=== PATIENT | female | born 1965 | race Caucasian/White ===

== ENCOUNTER 2021-06-22 12:10 | Day surgery (SDC) | payer BC ==
[2021-06-18 13:36] VITALS: BMI 26.5
[~2021-06-22 12:10] MED LIST: LACTATED RINGERS 1,000 ML IV SCH
[2021-06-22] MEDS ORDERED: LIDOCAINE 1% (10MG/ML) FOR IV START INTRADERMA ONE (12:40)
[2021-06-22] MEDS ORDERED: MIDAZOLAM 2 MG/2 ML VIAL ONE (12:44)
[2021-06-22] MEDS ORDERED: methylPREDNISolone ACETATE 40 MG/ML 1 ML VIAL ONE (12:44)
[2021-06-22] MEDS ORDERED: fentaNYL (PF) 50 MCG/ML 2 ML AMP ONE (12:44)
[2021-06-22] MEDS ORDERED: IOPAMIDOL M200 10 ML VIAL ONE (12:44)
[2021-06-22 12:47] VITALS: RESP 16; TEMP 98.9
--- NOTE | 2021-06-22 13:06 | P.PCN ---
Date of Procedure: 06/22/21 Procedure(s) Performed: PREOPERATIVE DIAGNOSIS: 1- Lumbar spine stenosis 2-Lumbar spondylosis with Facet arthropathy without myelopathy POSTOPERATIVE DIAGNOSIS: Same as preop diagnosis. PROCEDURE 1. Lumbar epidural steroid injection under fluoroscopic guidance at the L4-5 l evel. (Fluoroscopy imaging was available in radiology department) 2. Lumbar epidurogram. ANESTHESIA: Local with 1% lidocaine 3 ml and , moderate sedation with intravenous Versed 2 mg ,and fentanyle 100 Mcg EBL: Minimal PROCEDURE INDICATION: The patient with low back pain and radiculitis symptoms unresponsive to conservative treatment. Fluoroscopy was used to optimize visualization of the needle placement and to maximize safety. PROCEDURE DESCRIPTION / TECHNIQUE: The patient was seen and identified in the preoperative area. Risks, benefits, complications including but not limited to infections ,bleeding ,allergic reaction to the medications ,nerve damage and not complete pain releife , and alternatives were discussed with the patient. The patient agreed to proceed with the procedure and signed the consent. IV was started, and vital signs were stable. Patient was taken to the OR and time out was completed. The patient was placed in the prone position on procedure table and a pillow was placed under the abdomen to reduce lumbar lordosis. The lumbosacral area was prepped and draped in the usual sterile fashion.ere closely monitored during the procedure. Conscious sedation was used during the procedure to decrease patients anxiety. Vital signs was monitered during the entire procedure. Using anterior-posterior fluoroscopy, the L4-5 interlaminar space was identified and the skin over this site was marked and then infiltrated with 1% lidocaine subcutaneously. Subsequently, a 20-gauge Tuohy epidural needle was inserted and advanced toward the epidural space using the ``Loss of resistance technique and guided by AP and lateral fluoroscopy. The correct needle position in the epidural space was verified with the injection of 2 mL of the water soluble contrast dye Isovue 200 contrast and observing an excellent epidurogram with the epidural spread of the dye, after negative aspiration for blood and CSF and in the absence of paresthesias. Again after negative aspiration, a 6 ml mixture containing 80 mg of Depo-medrol , and 2 ml of preservative free Normal Saline, and 2 ml of preservative free lidocaine 1% solution was injected and a washout of epidurogram was seen. Needle was withdrawn intact, skin was cleansed, and bandages were applied. COMPLICATIONS: None DISPOSITION / PLANS: The patient was placed in a supine position and transferred to the recovery area in a stable condition for observation. There was no evidence of lower extremity motor or sensory deficit after the procedure. Patient was discharged from the recovery room after meeting discharge criteria. Home discharge instructions were given to the patient by the staff. The patient was reexamined prior to discharge. The patient will schedule a follow up in the clinic in 2-4 weeks.
[2021-06-22] MEDS ORDERED: IV FLUID CONTINUATION 800 ML IV ONE (13:08)
[2021-06-22] MEDS ORDERED: LACTATED RINGERS 1,000 ML IV ONE (13:08)
--- NOTE | 2021-06-22 13:13 | FL ---
EXAMINATION TYPE: FL guided pain mgmt statistic DATE OF EXAM: 06/22/2021 HISTORY: Fluoroscopy time 2 seconds of fluoroscopy provided. IMPRESSION: 1. Fluoroscopy time.
[2021-06-22 13:37] VITALS: BP 116/63; PULSE 71
== END 2021-06-22 13:34 | disposition home or self-care (01) ==
LOC: ORPAIN 12:10
PROVIDERS: ATTEND Specialist
DX: M48.061 Spinal stenosis, lumbar region without neurogenic claudication (principal); M47.26 Other spondylosis with radiculopathy, lumbar region
CPT/HCPCS: 81025; 62323; J2250; J1030; J3010; Q9966

== ENCOUNTER → 2021-08-27 | Outpatient (CLI) | payer BC ==
[2021-08-27 10:37] VITALS: BP 110/67; PULSE 115; RESP 18; TEMP 98.3
--- NOTE | 2021-08-27 11:07 | P.GSHP ---
History of Present Illness H&P Date: 08/27/21 Chief Complaint: right breast lump Shawnee is a 56 year old white female seen in consultation for Dr. Joya concerning a lump in her right breast. The lump has been present for a month. She states it is < 1 cm. It is deep in the tissue. She was laying on her side in bed and noted this. She had a bilateral mammogram in [id number]. This was benign BIRADS 1. It is located in the upper outer quadrant. It has not changed in size. It is not painful. She had a uterine ablation and is not having any periods. She has not had any trauma or infection in the breast. Caffeine: 2 cups/day nicotine: none chocolate: occasional BCP: 5 years stopped in her 30's hormones: none Family history: maternal grandmother: lung cancer paternal grandmother: ? type paternal uncle: liver cancer drinker Hormonal History: menarche: 14 , breast fed: no, age at first : 26 menopause: ablation at 46, periods stopped hormones: none Surgical history: Uterine ablation Medical history: bursitis of both hips depression Social History: nicotine: none alcohol: none drugs: none - Constitutional Constitutional: Denies chills, Denies fever - EENT Eyes: denies blurred vision, denies pain Ears: deny: decreased hearing, tinnitus Ears, nose, mouth and throat: Denies headache, Denies sore throat - Breasts Breasts: bilateral: as per HPI - Cardiovascular Cardiovascular: Denies chest pain, Denies shortness of breath - Respiratory Respiratory: Denies cough, Denies 7 - Gastrointestinal Gastrointestinal: Denies abdominal pain, Denies diarrhea, Denies nausea, Denies vomiting - Genitourinary (Female) Genitourinary: Denies dysuria, Denies hematuria - Menstruation Menstruation: Reports postmenopausal - Musculoskeletal Musculoskeletal: Reports as per HPI - Integumentary Integumentary: Denies pruritus, Denies rash - Neurological Neurological: Denies numbness, Denies weakness - Psychiatric Psychiatric: Denies anxiety, Denies depression - Endocrine Endocrine: Denies fatigue, Denies weight change - Hematologic/Lymphatic Comment: none - Allergic/Immunologic Allergic/Immunologic: Reports seasonal allergies Past Medical History Additional Past Medical History / Comment(s): CHRONIC BACK PAIN History of Any Multi-Drug Resistant Organisms: None Reported Past Surgical History: Tubal Ligation, Uterine Ablation Past Anesthesia/Blood Transfusion Reactions: No Reported Reaction Past Psychological History: Depression Smoking Status: Never smoker Past Alcohol Use History: None Reported Past Drug Use History: None Reported Medications and Allergies Home Medications Medication Instructions Recorded Confirmed Type B12/Levomefolate Calcium/B-6 288 mg PO DAILY 06/22/21 08/27/21 History [Foltx Tablet] Biotin 10,000 mcg PO DAILY 06/22/21 08/27/21 History Mv-Min/Folic/Vit K/Lut/Kzcg991 1 tab PO DAILY 06/22/21 08/27/21 History [Alive Women's 50 Plus Tablet] DULoxetine HCL 40 mg PO DAILY 08/27/21 08/27/21 History Rachel-3 Fatty Acids [Rachel-3] 1,000 mg PO DAILY 08/27/21 08/27/21 History Allergies Allergy/AdvReac Type Severity Reaction Status Date / Time No Known Allergies Allergy Verified 08/27/21 10:32 Surgical - Exam Vital Signs Temp Pulse Resp BP Pulse Ox 98.3 F 115 H 18 110/67 94 L 08/27/21 10:34 08/27/21 10:34 08/27/21 10:34 08/27/21 10:34 08/27/21 10:34 BMI 27.2 - General no distress - Eyes normal ocular movement - Neck trachea midline - Respiratory normal expansion - Cardiovascular Rhythm: regular Heart Sounds: normal: S1, S2 - Integumentary normal turgor - Neurologic no disoriented, no combative - Musculoskeletal normal gait, normal posture - Psychiatric oriented to time, oriented to person, oriented to place, speech is normal, memory intact Breast Exam: BRA: 34B inspection: Bilateral grade 2/3 ptosis Palpation: Right breast: multi-positional exam fibrocystic changes in the upper outer quadrant region near the axillary skin fold there is approximately an 8 mm area of nodularity which is more firm and freely mobile Right axilla: No adenopathy of concern Left breast: Multi-positional exam fibrocystic changes no dominant masses or nodules of concern Left axilla: No adenopathy of concern Results Mammogram reviewed from [id number] Assessment and Plan Assessment: Impression: Fibrocystic breast changes bilateral mammogram [id number] Finding of palpable mass right breast upper outer quadrant Plan: Ultrasound area of concern right breast if this is identified ultrasound core biopsy If ultrasound is unable to detect the lesion would recommend removal in the operating room follow up after ultrasound CC: Dr. Joya
== END ==
LOC: WWCWWP 10:23
PROVIDERS: ATTEND Surgery
DX: N60.11 Diffuse cystic mastopathy of right breast (principal); N60.12 Diffuse cystic mastopathy of left breast; N63.11 Unspecified lump in the right breast, upper outer quadrant; F32.A Depression, unspecified

== ENCOUNTER → 2021-09-09 | Day surgery (SDC) | payer BC ==
--- NOTE | 2021-09-09 14:44 | USB ---
EXAMINATION TYPE: US biopsy breast VAD RT, MG diagnostic mammo RT wo CAD DATE OF EXAM: 09/09/2021 CLINICAL HISTORY: N63 BREAST LUMP/MASS. Abnormal ultrasound. TECHNIQUE: Ultrasound guided core biopsy of right breast with clip placement follow-up diagnostic two-view mammogram.. COMPARISON: Prior right breast ultrasound August 27, 2021 and older studies. FINDINGS: The procedure of ultrasound guided core biopsy was explained to the patient. Benefits, alternatives, and risks were discussed. An informed consent was then obtained. The patient was placed in supine positioning for imaging and for the procedure. Preprocedure ultrasound redemonstrates a hypoechoic roughly 1.2 cm lesion with indistinct margins at 10:00 position right breast. The overlying skin was prepped and draped in usual sterile fashion. Lidocaine is used as anesthetic into the skin and subcutaneous tissue up to area of concern in the right breast. A zander was made with surgical scalpel. Under ultrasound guidance, a 12-gauge vacuum assisted biopsy gun device was used to obtain 2 core samples. Following this, a biopsy clip was left in lesion. The patient tolerated the procedure well without any immediate complication. The patient was kept in the radiology department for short stay after the procedure and then discharged home in stable condition. Postprocedure mammogram confirms successful deployment of the clip posterior upper outer quadrant IMPRESSION: Successful, uncomplicated ultrasound guided core biopsy of area of concern in the right breast, full pathology results to follow. Intermediate index of suspicion noted at time of procedure. Pathology Results: Malignant RIGHT BREAST, 10:00, NEEDLE CORE BIOPSY: Invasive poorly differentiated ductal carcinoma (Grade 3). See Surgical Pathology Cancer Case Summary. Recommendation Surgical consult of the right breast. JENNIFER
== END ==
LOC: RADUSWWP 12:30
PROVIDERS: ATTEND Surgery
DX: C50.411 Malignant neoplasm of upper-outer quadrant of right female breast (principal); Z17.1 Estrogen receptor negative status [ER-]
CPT/HCPCS: 19083; 88305; 88342; 88341; 77065; A4648

== ENCOUNTER → 2021-09-16 | Outpatient (CLI) | payer BC ==
[2021-09-16 09:33] VITALS: BP 143/80; PULSE 78; RESP 18; TEMP 98.1
--- NOTE | 2021-09-16 09:55 | P.PN ---
Subjective Progress Note Date: 09/16/21 Shawnee is a 56 year old white female seen in consultation for Dr. Joya concerning a lump in her right breast. The lump has been present for a month. She states it is < 1 cm. It is deep in the tissue. She was laying on her side in bed and noted this. She had a bilateral mammogram in [id number]. This was benign BIRADS 1. It is located in the upper outer quadrant. It has not changed in size. It is not painful. She had a uterine ablation and is not having any periods. She has not had any trauma or infection in the breast. The patient underwent an ultrasound core biopsy on 09-09-21. This revealed a G3 Er-Pr- invasive ductal cancer. The Her 2 is pending. The lesion is T1NoMo. at this time. She tolerated the procedure without difficulty. Caffeine: 2 cups/day nicotine: none chocolate: occasional BCP: 5 years stopped in her 30's hormones: none Family history: maternal grandmother: lung cancer paternal grandmother: ? type paternal uncle: liver cancer drinker Hormonal History: menarche: 14 , breast fed: no, age at first : 26 menopause: ablation at 46, periods stopped hormones: none Surgical history: Uterine ablation Medical history: bursitis of both hips depression Social History: nicotine: none alcohol: none drugs: none - Constitutional Constitutional: Denies chills, Denies fever - EENT Eyes: denies blurred vision, denies pain Ears: deny: decreased hearing, tinnitus Ears, nose, mouth and throat: Denies headache, Denies sore throat - Breasts Breasts: bilateral: as per HPI - Cardiovascular Cardiovascular: Denies chest pain, Denies shortness of breath - Respiratory Respiratory: Denies cough - Gastrointestinal Gastrointestinal: Denies abdominal pain, Denies diarrhea, Denies nausea, Denies vomiting - Genitourinary (Female) Genitourinary: Denies dysuria, Denies hematuria - Menstruation Menstruation: Reports postmenopausal - Musculoskeletal Musculoskeletal: Reports as per HPI - Integumentary Integumentary: Denies pruritus, Denies rash - Neurological Neurological: Denies numbness, Denies weakness - Psychiatric Psychiatric: Denies anxiety, Denies depression - Endocrine Endocrine: Denies fatigue, Denies weight change - Hematologic/Lymphatic Comment: none - Allergic/Immunologic Allergic/Immunologic: Reports seasonal allergies Objective - Vital Signs Vital signs: Vital Signs Temp 98.1 F 09/16/21 09:29 Pulse 78 09/16/21 09:29 Resp 18 09/16/21 09:29 BP 143/80 09/16/21 09:29 Pulse Ox 98 09/16/21 09:29 Intake & Output 09/15/21 09/16/21 09/16/21 18:59 06:59 18:59 Weight 65.771 kg - Constitutional General appearance: Present: cooperative - EENT Eyes: Present: EOMI ENT: Present: hearing grossly normal - Neck Neck: Present: normal ROM - Respiratory Respiratory: bilateral: CTA - Cardiovascular Heart sounds: normal: S1, S2 - Integumentary Integumentary Comment(s): Biopsy site clean and dry No evidence of infection No evidence of hematoma Mild ecchymosis at the site - Musculoskeletal Musculoskeletal: Present: gait normal - Psychiatric Psychiatric: Present: A&O x's 3, appropriate affect, intact judgment & insight Assessment and Plan Assessment: Impression: Ultrasound core biopsy right breast T1 N0 M0 G3 ER AK negative HER-2 pending Plan: Present case at tumor board Discussion of treatment options with the patient in detail Cc: Dr. Joya
== END ==
LOC: WWCWWP 09:01
PROVIDERS: ATTEND Surgery
DX: C50.911 Malignant neoplasm of unspecified site of right female breast (principal); Z17.1 Estrogen receptor negative status [ER-]; F32.A Depression, unspecified

== ENCOUNTER → 2021-09-22 | Outpatient (CLI) | payer BC ==
--- NOTE | 2021-09-27 08:27 | BMR ---
EXAMINATION TYPE: MR breast BILAT wo/w con DATE OF EXAM: 09/22/2021 COMPARISON: Outside 3-D screening mammogram April 29, 2021 BI-RADS 1. Limited right breast ultras ound August 27, 2021 BI-RADS 4. HISTORY: Breast cancer right upper outer quadrant on ultrasound-guided biopsy September 09, 2021 poorly d ifferentiated ductal carcinoma. TECHNIQUE: A series of fat and water weighted images in the long and short axis views of both breasts are obtained in conjunction with dynamic contrast MRI with subtraction technique. The patient was i njected with 6.5 mL intravenous Gadavist gadolinium contrast. Three-dimensional and additional post processing imaging is created on independent workstation and reviewed during official interpretation of this study. FINDINGS: Breast parenchyma redemonstrated heterogeneously dense. T2 and STIR weighted images show no significant cystic change or focal fluid collections in either breast. There are benign-appearing bi lateral axillary lymph nodes. No suspicious axillary adenopathy is present. Dynamic postcontrast imag ing shows mild background type enhancement. Delayed dynamic imaging shows no suspicious internal mamm steph adenopathy. With regards to the left breast. There is no abnormal skin thickening seen. There is no suspicious en hancement or enhancing masses identified. The chest wall is intact. With regards of the right breast there is artifact from biopsy clip in the posterior depth upper oute r quadrant image 152 series 401 for reference. This is at the inferior slightly lateral aspect of a r ound enhancing T2 hyperintense lesion measuring 1.1 cm AP diameter by 1.2 cm transversely by 1.1 cm c raniocaudal dimension image 945 series 701. Findings correlate with ultrasound findings. The computer measures area up to 1.7 cm transversely as longest axis Remainder of right breast shows no additiona l suspicious enhancement or enhancing masses. No abnormal skin thickening is seen. The chest wall ascencion ears intact. IMPRESSION: Biopsy proven malignancy in the right breast identified on MRI. No multicentric malignanc y seen. No invasive malignancy in the left breast noted. BI-RADS 6 biopsy-proven malignancy right breast. BI-RADS 1 negative study left breast. Recommendation: Appropriate surgical and oncologic management of newly diagnosed right breast maligna ncy.
== END | disposition home or self-care (01) ==
LOC: RADMRIMAIN 19:12
PROVIDERS: ATTEND Surgery
DX: C50.411 Malignant neoplasm of upper-outer quadrant of right female breast (principal)
CPT/HCPCS: 77049; C8937; A9585

== ENCOUNTER → 2021-10-14 | Outpatient (CLI) | payer BC ==
--- NOTE | 2021-10-14 11:54 | CA ---
Transthoracic Echo Report Name: Shawnee Capellan Age: 56 Gender: F : 1965 Exam Date: 10/14/2021 10:38 Exam Location: [facility] Ht (in): 62 Wt (lb): 140 Ordering Physician: Danae Ochoa MD Attending/Referring Phys: Fourchette Sewer Fozia Barriga RDCS Procedure CPT: Indications: Z01.818 ENCOUNTER FOR OTHER PREPROCEDURAL EXAMINAT Cardiac Hx: Pre Chemo. Technical Quality: Good Contrast 1: Total Dose (mL): Contrast 2: N/A Total Dose (mL): MEASUREMENTS (Male / Female) Normal Values 2D ECHO LV Diastolic Diameter PLAX 3.6 cm 4.2 - 5.9 / 3.9 - 5.3 cm LV Systolic Diameter PLAX 2.4 cm IVS Diastolic Thickness 0.7 cm 0.6 - 1.0 / 0.6 - 0.9 cm LVPW Diastolic Thickness 1.1 cm 0.6 - 1.0 / 0.6 - 0.9 cm LV Relative Wall Thickness 0.5 RV Internal Dim ED PLAX 2.1 cm LA Volume 28.9 cm??? 18 - 58 / 22 - 52 cm??? M-MODE Aortic Root Diameter MM 2.8 cm LA Systolic Diameter MM 2.0 cm LA Ao Ratio MM 0.7 MV E Point Septal Separation 0.8 cm AV Cusp Separation MM 1.5 cm DOPPLER MV Area PHT 5.1 cm??? Mitral E Point Velocity 63.2 cm/s Mitral A Point Velocity 64.8 cm/s Mitral E to A Ratio 1.0 MV Deceleration Time 147.5 ms MV E' Velocity 10.0 cm/s Mitral E to MV E' Ratio 6.3 FINDINGS Left Ventricle Normal left ventricular systolic function with no obvious regional wall motion abnormalities. Mildly increased left ventricular wall thickness. Right Ventricle Normal right ventricular size and function. Right ventricular systolic pressure within normal limits. Right Atrium Normal right atrial size. Left Atrium Normal left atrial size. Mitral Valve Mild mitral regurgitation. Aortic Valve Trileaflet aortic valve. Tricuspid Valve Mild tricuspid regurgitation. Pulmonic Valve Structurally normal pulmonic valve. Pericardium Normal pericardium. Aorta Normal size aortic root and proximal ascending aorta. CONCLUSIONS Normal left ventricular ejection fraction 55-60% Borderline LVH Mild mitral regurgitation Mild tricuspid regurgitation Previewed by: Dr. Abdulaziz Law DO (Electronically Signed) Final Date: 14 October 2021 11:53
== END | disposition home or self-care (01) ==
LOC: RADECHMAIN 10:29
PROVIDERS: ATTEND Internal Medicine Hematology & Oncology
DX: Z01.818 Encounter for other preprocedural examination (principal); I08.1 Rheumatic disorders of both mitral and tricuspid valves
CPT/HCPCS: 93306

== ENCOUNTER → 2021-11-05 | Outpatient (CLI) | payer BC ==
[2021-11-05 11:32] VITALS: BP 127/79; PULSE 73; RESP 16; TEMP 98.2
--- NOTE | 2021-11-05 12:13 | P.PN ---
Subjective Progress Note Date: 11/05/21 Principal diagnosis: invasive ductal right breast cancer Shawnee is a 56 year old white female seen in consultation for Dr. Joya concerning a lump in her right breast. The lump has been present for a month. She states it is < 1 cm. It is deep in the tissue. She was laying on her side in bed and noted this. She had a bilateral mammogram in [id number]. This was benign BIRADS 1. It is located in the upper outer quadrant. It has not changed in size. It is not painful. She had a uterine ablation and is not having any periods. She has not had any trauma or infection in the breast. The patient underwent an ultrasound core biopsy on 09-09-21. This revealed a G3 Er-Pr- invasive ductal cancer. The Her 2 is pending. The lesion is T1NoMo. at this time. She tolerated the procedure without difficulty. 11-05-21 The patient's case has been presented at tumor board as well as she has seen medical oncology. She also met with radiation oncology. 10-12-21: note from DR. Ochoa reviewed ; patient did not want to have edgar- adjuvant chemotherapy will proceed with surgery [id number] Caffeine: 2 cups/day nicotine: none chocolate: occasional BCP: 5 years stopped in her 30's hormones: none Family history: maternal grandmother: lung cancer paternal grandmother: ? type paternal uncle: liver cancer drinker Hormonal History: menarche: 14 , breast fed: no, age at first : 26 menopause: ablation at 46, periods stopped hormones: none Surgical history: Uterine ablation Medical history: bursitis of both hips depression Social History: nicotine: none alcohol: none drugs: none - Constitutional Constitutional: Denies chills, Denies fever - EENT Eyes: denies blurred vision, denies pain Ears: deny: decreased hearing, tinnitus Ears, nose, mouth and throat: Denies headache, Denies sore throat - Breasts Breasts: bilateral: as per HPI - Cardiovascular Cardiovascular: Denies chest pain, Denies shortness of breath - Respiratory Respiratory: Denies cough - Gastrointestinal Gastrointestinal: Denies abdominal pain, Denies diarrhea, Denies nausea, Denies vomiting - Genitourinary (Female) Genitourinary: Denies dysuria, Denies hematuria - Menstruation Menstruation: Reports postmenopausal - Musculoskeletal Musculoskeletal: Reports as per HPI - Integumentary Integumentary: Denies pruritus, Denies rash - Neurological Neurological: Denies numbness, Denies weakness - Psychiatric Psychiatric: Denies anxiety, Denies depression - Endocrine Endocrine: Denies fatigue, Denies weight change - Hematologic/Lymphatic Comment: none - Allergic/Immunologic Allergic/Immunologic: Reports seasonal allergies Objective - Vital Signs Vital signs: Vital Signs Temp 98.2 F 11/05/21 11:29 Pulse 73 11/05/21 11:29 Resp 16 11/05/21 11:29 BP 127/79 11/05/21 11:29 Pulse Ox 96 11/05/21 11:29 FiO2 Intake & Output 11/04/21 11/05/21 11/05/21 18:59 06:59 18:59 Weight 63.503 kg - Exam BMI: 25.6 - Constitutional General appearance: Present: cooperative - EENT Eyes: Present: EOMI ENT: Present: hearing grossly normal - Neck Neck: Present: normal ROM - Respiratory Respiratory: bilateral: CTA - Cardiovascular Rhythm: regular Heart sounds: normal: S1, S2 - Gastrointestinal General gastrointestinal: Present: soft - Integumentary Integumentary: Present: normal turgor - Musculoskeletal Musculoskeletal: Present: gait normal - Psychiatric Psychiatric: Present: A&O x's 3, appropriate affect, intact judgment & insight - Additional findings Additional findings: Breast Exam: BRA: 34B Inspection: Grade 3 ptosis bilateral Palpation: Right breast: Multiple positional exam fullness upper-outer quadrant no other discrete dominant masses or nodules of concern Right axilla: No adenopathy of concern Left breast: Multiple positional exam fibrocystic changes no dominant masses or nodules of concern Left axilla: No adenopathy of concern Assessment and Plan Assessment: Impression: Stage IB right breast invasive ductal carcinoma Plan: right breast needle localization lumpectomy, onco-plastic tissue transfer, mastopexy incision, sentinel node biopsy, sentinel node injection, possible right axillary node dissection Risks and benefits of the procedure discussed with the patient and her . They understand and wish to proceed. This is being scheduled for the near future. CC: Dr. Joya
== END ==
LOC: WWCWWP 11:20
PROVIDERS: ATTEND Surgery
DX: C50.411 Malignant neoplasm of upper-outer quadrant of right female breast (principal); F32.A Depression, unspecified

== ENCOUNTER 2021-11-09 08:10 | Day surgery (SDC) | payer BC ==
[2021-11-05 10:54] VITALS: BMI 25.6
[~2021-11-09 08:10] MED LIST changes: +DEXAMETHASONE SOD PHOSPHATE 4 MG/ML 1 ML VIAL IV ONE; +HEPARIN SODIUM,PORCINE/PF 5,000 UNIT/0.5 ML SYRINGE SQ PRN; +HYDROmorphone 0.5 MG/0.5 ML SYRINGE IVP PRN; +LIDOCAINE 1% (10MG/ML) FOR IV START INTRADERMA PRN; +MIDAZOLAM 2 MG/2 ML VIAL IV PRN; +ONDANSETRON 4 MG/2 ML VIAL IVP ONE; +Pre Op ABX Message 1 EACH MISC MISCELLANE ONE
[2021-11-09] MEDS ORDERED: ALPRAZolam 0.5 MG TAB PO ONE (09:27)
[2021-11-09] MEDS ORDERED: LIDOCAINE 1% INJ 10MG/ML (20 ML MDV) SQ ONE (10:11)
--- NOTE | 2021-11-09 11:41 | P.NAPBC ---
NAPBC Queries - NAPBC Queries Was patient's case review presented at [facility] tumor board? If no, comment.: Yes Was patient's pathology reviewed at [facility]? If no, comment.: Yes Was breast conservation surgery offered? If no, comment.: Yes Was sentinel node biopsy offered? If no, comment.: Yes Was diagnosis confirmed by percutaneous core biopsy? If no, comment.: Yes Is patient mastectomy patient?: No Was a preop referral to reconstructive surgeon offered?: No Clinical Stage: sstage IB [id number]
[2021-11-09] MEDS ORDERED: MIDAZOLAM 2 MG/2 ML VIAL ONE (11:46)
[2021-11-09] MEDS ORDERED: fentaNYL (PF) 50 MCG/ML 2 ML AMP ONE (11:46)
[2021-11-09] MEDS ORDERED: PHENYLEPHRINE-0.9% NACL SYG 1,000 MCG/10 ML SYRINGE ONE (11:46)
[2021-11-09] MEDS ORDERED: PROPOFOL 10 MG/ML 20 ML VIAL IV ONE (11:46)
[2021-11-09] MEDS ORDERED: SUCCINYLCHOLINE CHLORIDE 100 MG/5 ML SYR IV ONE (11:46)
[2021-11-09] MEDS ORDERED: LIDOCAINE 2% INJ 20 MG/ML (2 ML VIAL) ONE (11:46)
[2021-11-09] MEDS ORDERED: SODIUM CHLORIDE 0.9% 100 ML with ceFAZolin 2 GM IV ONE ×2 (11:51)
--- NOTE | 2021-11-09 12:26 | NM ---
EXAMINATION TYPE: NM sentinel node injection DATE OF EXAM: 11/09/2021 COMPARISON: 09/09/2021 HISTORY: 56-year-old female biopsy-proven right breast cancer, referred for sentinel node injection a s well as needle localization. TECHNIQUE AND FINDINGS: The procedure of sentinel lymph node injection was explained to the patient. The benefits, alternatives, and risks were discussed. An informed consent was then obtained. Overlying skin is cleaned with sterile alcohol. Following this, 530 uCi Tc99m Tilmanocept was inject ed in the upper outer aspect of the right nipple intradermally. The patient tolerated the procedure well without any immediate complication. The patient was kept in the radiology department for short stay after the procedure and then taken to surgery for surgical p rocedure what is presumed intraoperative gamma probe will be used for sentinel lymph node detection. IMPRESSION: Right breast radiotracer injection for sentinel node localization as above.
[2021-11-09] MEDS ORDERED: LACTATED RINGERS 1,000 ML IV ONE (13:38)
--- NOTE | 2021-11-09 13:55 | P.OP ---
Date of Procedure: 11/09/21 Preoperative Diagnosis: Right breast invasive ductal carcinoma Postoperative Diagnosis: Same Procedure(s) Performed: Right breast sentinel node biopsy, needle localization lumpectomy, onco-plastic tissue transfer, 78 cm, doughnut mastopexy Anesthesia: OSMANY Surgeon: Grecia Ledesma Estimated Blood Loss (ml): 10 IV fluids (ml): 1,000 Pathology: other ([place] lymph node, breast tissue) Condition: stable Disposition: same day Indications for Procedure: Invasive ductal carcinoma right breast Operative Findings: Dense breast tissue Description of Procedure: The patient was initially seen in the radiology department. The radioactive injection was performed in the periareolar area. The localization of the cancer was performed. The patient was brought to the operative suite and following in duction of anesthesia the neoprobe was used to interrogate the axilla. Radioactivity was noted to be present and therefore methylene blue was not injected. The patient was prepped and draped in a sterile fashion following induction of anesthesia. The axilla was approached initially. Using the neoprobe for guidance incision was made over the area of greatest radioactivity. Careful dissection was performed through the skin and subcutaneous tissue into the axillary tissue. The area of radioactivity was identified and this was grasped using an Allis clamp. Using a pusher the tissue was pushed away from the surrounding areas and a lymph node was identified. This was removed using the Harmonic scalpel. The 10 second count on this was 9532. A second lymph node was identified. The tissue was grasped using an Allis clamp and this was also removed. The 10 second count on this was 1397. No additional radioactive or suspicious nodes were identified. The background radioactive count was 38. The wound was well irrigated. The deep tissues were closed using 3-0 Vicryl suture. This was followed by closure of the subcutaneous tissue with 3-0 Vicryl suture. The skin was closed using a 4-0 Monocryl. The area of the breast was then approached. In the preoperative area of the markings for a donut mastopexy had been formed. The skin in this area was de- epithelialized. The breast parenchyma was entered. Dissection was performed down to the area of the shaft of the needle. Surrounding tissue was excised. The area was grasped using an Allis clamp prior to excision. Wide excision around all this area was performed. Dissection was performed posteriorly onto the pectoralis muscle. Anteriorly dissection was directly under the skin and subcutaneous tissue. Following this the specimen was removed and the wound was irrigated. After assured that hemostasis was attained titanium clips were placed. The specimen was painted for orientation and sent for radiograph. Radiograph the area of concern had been removed. There was some concern that the lateral and superior margins may be close and additional tissue was obtained laterally and superiorly. This was painted as well for orientation. Surgicel and positive for was placed in the cavity of the resection. Superior tissue was mobilized by 3 x 2 cm. Inferior tissue was mobilized 5 x 6 cm. A total of 48 cm of tissue was mobilized. This was closed over the defect which was 5 x 6 cm. Total tissue mobilized was 78 cm. The pillars were brought together and secured using 3-0 Vicryl suture. Subcutaneous tissue was closed using 3-0 Vicryl suture. This was followed by a 4-0 Ethibond suture. The patient tolerated the procedure in stable condition. All instrument and sponge counts were correct at the end of the case.
--- NOTE | 2021-11-09 13:57 | P.DS ---
Providers Attending physician: Grecia Ledesma Primary care physician: Yamil Joya Plan - Discharge Summary Discharge Rx Participant: No New Discharge Prescriptions: No Action B12/Levomefolate Calcium/B-6 [Foltx Tablet] 288 mg PO DAILY Biotin 10,000 mcg PO DAILY Mv-Min/Folic/Vit K/Lut/Epmx966 [Alive Women's 50 Plus Tablet] 1 tab PO DAILY DULoxetine HCL 40 mg PO DAILY [place]-3 Fatty Acids [[place]-3] 1,000 mg PO DAILY Discharge Medication List B12/Levomefolate Calcium/B-6 [Foltx Tablet] 288 mg PO DAILY 06/22/21 [History] Biotin 10,000 mcg PO DAILY 06/22/21 [History] Mv-Min/Folic/Vit K/Lut/Uaow720 [Alive Women's 50 Plus Tablet] 1 tab PO DAILY 06/22/21 [History] DULoxetine HCL 40 mg PO DAILY 08/27/21 [History] [place]-3 Fatty Acids [[place]-3] 1,000 mg PO DAILY 08/27/21 [History] Follow up Appointment(s)/Referral(s): Grecia Ledesma MD [STAFF PHYSICIAN] - 11/26/21 4:20 pm Activity/Diet/Wound Care/Special Instructions: Do not drive for 48 hours after discharge if taking narcotic pain medication Wear bra at all times, may shower after 48 hours Discharge Disposition: HOME SELF-CARE
[2021-11-09 14:19] VITALS: TEMP 96.8
[2021-11-09] MEDS ORDERED: HYDROmorphone 0.5 MG/0.5 ML SYRINGE IVP ONE (14:53)
[2021-11-09 15:20] VITALS: RESP 18
[2021-11-09] MEDS ORDERED: HYDROcodone/APAP 5-325MG 1 EACH TAB PO ONE (15:32)
[2021-11-09] MEDS ORDERED: HYDROcodone/APAP 5-325MG 1 EACH TAB ONE (15:33)
[2021-11-09 15:49] VITALS: BP 131/81; PULSE 60
== END 2021-11-09 16:06 | disposition home or self-care (01) ==
LOC: OR 08:10
PROVIDERS: ATTEND Surgery
DX: C50.411 Malignant neoplasm of upper-outer quadrant of right female breast (principal); Z80.1 Family history of malignant neoplasm of trachea, bronchus and lung; Z80.0 Family history of malignant neoplasm of digestive organs; Z98.890 Other specified postprocedural states; M70.62 Trochanteric bursitis, left hip; M70.61 Trochanteric bursitis, right hip; F32.A Depression, unspecified; N60.11 Diffuse cystic mastopathy of right breast
CPT/HCPCS: 88305; 88342; 88307; 88341; 76999; 19285; 38792; 19301; 38525; 19316; 14301; 14302; C1819; A9520; J2250; J1100; J0690; J2405; J2001 ×2; J3010; J2370; J0330; J2704; J1170; J1644

== ENCOUNTER 2021-11-22 08:46 | Day surgery (SDC) | payer BC ==
[2021-11-17 16:02] VITALS: BMI 25.2
--- NOTE | 2021-11-22 08:36 | P.GSHP ---
History of Present Illness H&P Date: 11/22/21 Chief Complaint: Right breast cancer 56-year-old female here today for Port-A-Cath placement. Patient recently diagnosed with right-sided breast cancer. Underwent definitive resection recently. Patient is to begin chemotherapy. Past Medical History Past Medical History: Cancer Additional Past Medical History / Comment(s): rt breast cancer History of Any Multi-Drug Resistant Organisms: None Reported Past Surgical History: Breast Surgery, Tubal Ligation, Uterine Ablation Additional Past Surgical History / Comment(s): rt breast biopsy, rt breast lumpectomy 11/09/21 Past Anesthesia/Blood Transfusion Reactions: No Reported Reaction Smoking Status: Never smoker - Past Family History Father Family Medical History: Cancer Additional Family Medical History / Comment(s): skin cancer Medications and Allergies Home Medications Medication Instructions Recorded Confirmed Type Biotin 10,000 mcg PO DAILY 06/22/21 11/17/21 History DULoxetine HCL 40 mg PO DAILY 08/27/21 11/17/21 History Black Current Seed Oil 1 tab PO DAILY 11/17/21 11/17/21 History Seamoss 2,000 mg PO DAILY 11/17/21 11/17/21 History Thyro Tone 500 mg PO DAILY 11/17/21 11/17/21 History Vitamin B12(Dose Unknown) 1 tab PO DAILY 11/17/21 11/17/21 History lysine HCL [l-Lysine] 1,000 mg PO DAILY 11/17/21 11/17/21 History Allergies Allergy/AdvReac Type Severity Reaction Status Date / Time No Known Allergies Allergy Verified 11/17/21 15:52 Surgical - Exam Physical exam: General: Well-developed, well-nourished HEENT: Normocephalic, sclerae nonicteric Abdomen: Nontender, nondistended Extremities: No edema Neuro: Alert and oriented Assessment and Plan (1) Breast cancer Narrative/Plan: Will proceed with Port-A-Cath placement at this time. Risks of bleeding, infection, DVT, pneumothorax, catheter malfunction, anesthesia related complications were discussed. The patient understands and wishes to proceed. Status: Acute Code(s): C50.919 - MALIGNANT NEOPLASM OF UNSP SITE OF UNSPECIFIED FEMALE BREAST SNOMED Code(s): 776539200
[~2021-11-22 08:46] MED LIST changes: +ACETAMINOPHEN TAB 500 MG TAB PO PRN; -LIDOCAINE 1% (10MG/ML) FOR IV START INTRADERMA PRN; +SCOPOLAMINE 1 MG/72 HR PATCH TRANSDERM ONE
[2021-11-22] MEDS ORDERED: LIDOCAINE 1% (10MG/ML) FOR IV START INTRADERMA ONE (10:11)
[2021-11-22] MEDS ORDERED: ceFAZolin 1,000 MG VIAL ONE (11:07)
[2021-11-22] MEDS ORDERED: LIDOCAINE 2% INJ 20 MG/ML (2 ML VIAL) ONE (11:07)
[2021-11-22] MEDS ORDERED: PROPOFOL 10 MG/ML 20 ML VIAL IV ONE (11:07)
[2021-11-22] MEDS ORDERED: fentaNYL (PF) 50 MCG/ML 2 ML AMP ONE (11:07)
[2021-11-22] MEDS ORDERED: MIDAZOLAM 2 MG/2 ML VIAL ONE (11:07)
[2021-11-22] MEDS ORDERED: PHENYLEPHRINE-0.9% NACL SYG 1,000 MCG/10 ML SYRINGE ONE (11:07)
[2021-11-22] MEDS ORDERED: HEPARIN SODIUM,PORCINE 100 UNIT/ML 5 ML VIAL IV ONE ×2 (11:33)
[2021-11-22] MEDS ORDERED: LIDOCAINE (PF) 10 MG/ML 2 ML VIAL SQ ONE (11:33)
[2021-11-22] MEDS ORDERED: NALOXONE 0.4 MG/ML 1 ML VIAL IV PRN (12:05)
--- NOTE | 2021-11-22 12:07 | P.OP ---
Date of Procedure: 11/22/21 Procedure(s) Performed: PREOPERATIVE DIAGNOSIS: Right breast cancer POSTOPERATIVE DIAGNOSIS: Same PROCEDURE: Port-A-Cath placement with fluoroscopic and ultrasound guidance SURGEON: Price EBL: 10 mL ANESTHESIA: General COMPLICATIONS: None OPERATIVE PROCEDURE: Patient was brought and placed on the operative table in the supine position. The patient was sedated per anesthesia that time. The chest and neck were prepped and draped in usual sterile fashion. The ultrasound probe was used to identify the location of the left internal jugular vein. The skin was localized with lidocaine. The Seldinger needle was advanced into the IJ under ultrasound guidance. The wire was advanced through the needle under fluoroscopic guidance into the superior vena cava. A port pocket was created in the left infraclavicular location. The catheter was tunneled from the wire entrance site to the port pocket. The port was then connected to the catheter. The dilator introducer was threaded over the guidewire. The guidewire and dilator were then removed. The catheter was advanced through the introducer and introducer was then removed. The tip was seen to be in the right atrial junction via fluoroscopy. A picture of the radiograph showing the tip at the radial digital junction was taken. Port was flushed with both saline and a Hep- Lock solution. There was good flow both in and out of the port. The port was sutured in underlying tissues using 3-0 silk sutures. The subcutaneous tissues were reapproximated using 3-0 Vicryl sutures and the skin at both locations using 4-0 Monocryl sutures. Skin glue and sterile dressings then applied. DISPOSITION: Stable to recovery room
[2021-11-22 12:16] VITALS: TEMP 96.9
[2021-11-22 12:25] VITALS: RESP 16
--- NOTE | 2021-11-22 12:31 | XR ---
EXAMINATION TYPE: XR chest 1V confirm line [facility] DATE OF EXAM: 11/22/2021 COMPARISON: NONE HISTORY: Check line placement TECHNIQUE: Single frontal view of the chest is obtained. FINDINGS: There is no focal air space opacity, pleural effusion, or pneumothorax seen. The cardiac silhouette size is within normal limits. The osseous structures are intact. Surgical clips along th e right axilla. MediPort catheter seen with tip overlying the SVC. No sizable pneumothorax. IMPRESSION: Mediport catheter tip overlying SVC and no sizable pneumothorax.
[2021-11-22 13:36] VITALS: BP 123/83; PULSE 70
--- NOTE | 2021-11-22 14:13 | FL ---
EXAMINATION TYPE: FL guided central line placemt HISTORY: Fluoroscopy time Impression: 1. Fluoroscopy support provided to the referring physician. 9 seconds of fluoroscopy provided.
== END 2021-11-22 13:38 | disposition home or self-care (01) ==
LOC: OR 08:46
PROVIDERS: ATTEND Surgery
DX: C50.911 Malignant neoplasm of unspecified site of right female breast (principal); F32.A Depression, unspecified; Z79.899 Other long term (current) drug therapy; Z98.890 Other specified postprocedural states; Z98.51 Tubal ligation status; Z80.8 Family history of malignant neoplasm of other organs or systems
CPT/HCPCS: 81025; 77001; 36561; C1788; J2250; J2001 ×2; J1642; J1100; J2405; J0690; J3010; J2370; J2704; J1644

== ENCOUNTER → 2021-11-26 | Outpatient (CLI) | payer BC ==
--- NOTE | 2021-11-17 10:08 | MM ---
Reason for Exam: Post Procedure Mammogram. Last screening mammogram was performed 6 month(s) ago. Patient History: Menarche at age 15. Breast cancer, age 56. 09/09/2021, Malignant Core Biopsy on the right side. Prior Study Comparison: 10/24/2003 Bilateral Screening Mammogram, [facility]. 04/29/2021 Screening Mammogram, [facility]. 09/09/2021 Right Diagnostic Mammogram, [facility]. Tissue Density: Right: The breast tissue is heterogeneously dense. This may lower the sensitivity of mammography. Pathology Description: Location: 10 o'clock, upper outer quadrant. Needle Type: 5 cm Kopan Pathology Results: Result: Malignant, Invasive ductal carcinoma. A. RIGHT BREAST, LUMPECTOMY: Invasive poorly differentiated ductal carcinoma (Grade 3) and high grade DCIS, margins negative. See Surgical Pathology Cancer Case Summary. B. RIGHT SENTINEL NODE #1, BIOPSY: Lymph node positive for isolated tumor cells (ITC). CK7 and KATELIN immunoperoxidase stains are confirmatory (controls appropriate). C. RIGHT SENTINEL NODE #2, BIOPSY: Four lymph nodes negative for metastasis. CK7 and KATELIN immunoperoxidase stains are confirmatory (controls appropriate). D. RIGHT BREAST, NEW LATERAL MARGIN, EXCISION: Benign fibroadipose tissue. E. RIGHT BREAST, NEW SUPERIOR MARGIN, EXCISION: Benign breast with fibrocystic changes. F. DE-EPITHELIALIZED SKIN: Benign skin without significant histopathologic changes. Pathology Results: Result: Malignant, Invasive ductal carcinoma. A. RIGHT BREAST, LUMPECTOMY: Invasive poorly differentiated ductal carcinoma (Grade 3) and high grade DCIS, margins negative. See Surgical Pathology Cancer Case Summary. B. RIGHT SENTINEL NODE #1, BIOPSY: Lymph node positive for isolated tumor cells (ITC). CK7 and KATELIN immunoperoxidase stains are confirmatory (controls appropriate). C. RIGHT SENTINEL NODE #2, BIOPSY: Four lymph nodes negative for metastasis. CK7 and KATELIN immunoperoxidase stains are confirmatory (controls appropriate). D. RIGHT BREAST, NEW LATERAL MARGIN, EXCISION: Benign fibroadipose tissue. E. RIGHT BREAST, NEW SUPERIOR MARGIN, EXCISION: Benign breast with fibrocystic changes. F. DE-EPITHELIALIZED SKIN: Benign skin without significant histopathologic changes. Overall Assessment: Malignant Assessment: MG diagnostic mammo RT wo CAD - Right: Known biopsy proven malignancy, BI-RAD 6. Management: Surgical Consultation of the right breast. Electronically signed and approved by: Slade Huffman M.D. Radiologist
--- NOTE | 2021-11-17 10:08 | MM ---
Reason for Exam: Post Procedure Mammogram. Last screening mammogram was performed 6 month(s) ago. Patient History: Menarche at age 15. Breast cancer, age 56. 09/09/2021, Malignant Core Biopsy on the right side. Prior Study Comparison: 10/24/2003 Bilateral Screening Mammogram, [facility]. 04/29/2021 Screening Mammogram, [facility]. 09/09/2021 Right Diagnostic Mammogram, [facility]. Tissue Density: Right: The breast tissue is heterogeneously dense. This may lower the sensitivity of mammography. Pathology Description: Location: 10 o'clock, upper outer quadrant. Needle Type: 5 cm Kopan Pathology Results: Result: Malignant, Invasive ductal carcinoma. A. RIGHT BREAST, LUMPECTOMY: Invasive poorly differentiated ductal carcinoma (Grade 3) and high grade DCIS, margins negative. See Surgical Pathology Cancer Case Summary. B. RIGHT SENTINEL NODE #1, BIOPSY: Lymph node positive for isolated tumor cells (ITC). CK7 and KATELIN immunoperoxidase stains are confirmatory (controls appropriate). C. RIGHT SENTINEL NODE #2, BIOPSY: Four lymph nodes negative for metastasis. CK7 and KATELIN immunoperoxidase stains are confirmatory (controls appropriate). D. RIGHT BREAST, NEW LATERAL MARGIN, EXCISION: Benign fibroadipose tissue. E. RIGHT BREAST, NEW SUPERIOR MARGIN, EXCISION: Benign breast with fibrocystic changes. F. DE-EPITHELIALIZED SKIN: Benign skin without significant histopathologic changes. Pathology Results: Result: Malignant, Invasive ductal carcinoma. A. RIGHT BREAST, LUMPECTOMY: Invasive poorly differentiated ductal carcinoma (Grade 3) and high grade DCIS, margins negative. See Surgical Pathology Cancer Case Summary. B. RIGHT SENTINEL NODE #1, BIOPSY: Lymph node positive for isolated tumor cells (ITC). CK7 and KATELIN immunoperoxidase stains are confirmatory (controls appropriate). C. RIGHT SENTINEL NODE #2, BIOPSY: Four lymph nodes negative for metastasis. CK7 and KATELIN immunoperoxidase stains are confirmatory (controls appropriate). D. RIGHT BREAST, NEW LATERAL MARGIN, EXCISION: Benign fibroadipose tissue. E. RIGHT BREAST, NEW SUPERIOR MARGIN, EXCISION: Benign breast with fibrocystic changes. F. DE-EPITHELIALIZED SKIN: Benign skin without significant histopathologic changes. Overall Assessment: Malignant Assessment: MG diagnostic mammo RT wo CAD - Right: Known biopsy proven malignancy, BI-RAD 6. Management: Surgical Consultation of the right breast. Electronically signed and approved by: Slade Huffman M.D. Radiologist
[2021-11-26 15:07] VITALS: BP 137/83; PULSE 62; RESP 16; TEMP 98.8
--- NOTE | 2021-11-26 15:25 | P.PN ---
Progress Note - Text Progress Note Date: 11/26/21 Shawnee is a 56 year old whtie female status post right lumpectomy and SNB on 11-09-21. Her nodes showed one isolated tumor cells out of 5 nodes samples. All margins were negative for a 1 cm invasive ductal cancer. DCIS margins (-). lungs: clear heart: RRR incision breast and axilla clean and dry Impression: Patient status post lumpectomy [place] [id number], one lymph node revealed microscopic disease the rest were negative, all margins were negative. Plan: Follow-up appointment medical oncology; Dr. Ochoa; 4 cycles of AC and 12 of taxol Follow-up appointment radiation oncology Follow-up. 4 months Cc: Dr. Joya
== END ==
LOC: WWCWWP 14:55
PROVIDERS: ATTEND Surgery
DX: Z48.817 Encounter for surgical aftercare following surgery on the skin and subcutaneous tissue (principal); C50.411 Malignant neoplasm of upper-outer quadrant of right female breast
CPT/HCPCS: 76098; 77065

== ENCOUNTER 2022-03-07 06:14 | Day surgery (SDC) | payer BC ==
[2022-03-03 11:14] VITALS: BMI 25.6
[~2022-03-07 06:14] MED LIST changes: -HYDROmorphone 0.5 MG/0.5 ML SYRINGE IVP PRN; -MIDAZOLAM 2 MG/2 ML VIAL IV PRN; -Pre Op ABX Message 1 EACH MISC MISCELLANE ONE; -SCOPOLAMINE 1 MG/72 HR PATCH TRANSDERM ONE; +fentaNYL (PF) 50 MCG/ML 2 ML AMP IV PRN
[2022-03-07 06:41] VITALS: TEMP 97.4
[2022-03-07] MEDS ORDERED: LACTATED RINGERS 1,000 ML IV ONE (06:57)
[2022-03-07] MEDS ORDERED: fentaNYL (PF) 50 MCG/ML 2 ML AMP ONE ×2 (07:34)
[2022-03-07] MEDS ORDERED: MIDAZOLAM 2 MG/2 ML VIAL ONE ×2 (07:34)
[2022-03-07] MEDS ORDERED: PROPOFOL 10 MG/ML 20 ML VIAL IV ONE ×2 (07:34)
--- NOTE | 2022-03-07 07:39 | P.GSHP ---
History of Present Illness H&P Date: 03/07/22 Chief Complaint: Breast cancer 56-year-old female here today for Port-A-Cath removal. Patient used the catheter last 2-3 weeks ago. No issues with the port during treatment. She no longer needs it. Past Medical History Past Medical History: Cancer Additional Past Medical History / Comment(s): Bilat hip bursitis. rt breast CANCER History of Any Multi-Drug Resistant Organisms: None Reported Past Surgical History: Tubal Ligation, Uterine Ablation Additional Past Surgical History / Comment(s): RT-lumpectomy 2021-TO START RADIATION-HAD CHEMO-LAST DOSE 2 WEEKS AGO, PORT A CATH INSERTION, COLONOSCOPY Past Anesthesia/Blood Transfusion Reactions: No Reported Reaction Smoking Status: Never smoker - Past Family History Mother Family Medical History: No Reported History Medications and Allergies Home Medications Medication Instructions Recorded Confirmed Type DULoxetine HCL 40 mg PO DAILY 08/27/21 03/03/22 History Allergies Allergy/AdvReac Type Severity Reaction Status Date / Time No Known Allergies Allergy Verified 03/03/22 11:04 Surgical - Exam Vital Signs Temp Pulse Resp BP Pulse Ox 97.4 F L 75 18 125/58 100 03/07/22 06:40 03/07/22 06:40 03/07/22 06:40 03/07/22 06:40 03/07/22 06:40 Physical exam: General: Well-developed, well-nourished HEENT: Normocephalic, sclerae nonicteric Abdomen: Nontender, nondistended Extremities: No edema Neuro: Alert and oriented Chest: Left-sided Port-A-Cath in place Assessment and Plan (1) Breast cancer Narrative/Plan: Will proceed with Port-A-Cath removal. Current Visit: No Status: Acute Code(s): C50.919 - MALIGNANT NEOPLASM OF UNSP SITE OF UNSPECIFIED FEMALE BREAST SNOMED Code(s): 892688397
[2022-03-07] MEDS ORDERED: BUPIVACAINE (PF) 0.25% 30 ML VIAL SQ ONE ×2 (07:48)
[2022-03-07] MEDS ORDERED: NALOXONE 0.4 MG/ML 1 ML VIAL IV PRN (08:09)
--- NOTE | 2022-03-07 08:11 | P.OP ---
Date of Procedure: 03/07/22 Procedure(s) Performed: PREOPERATIVE DIAGNOSIS: Breast cancer POSTOPERATIVE DIAGNOSIS: Same PROCEDURE: Port-A-Cath removal SURGEON: Price EBL: Minimal ANESTHESIA: Sedation COMPLICATIONS: None OPERATIVE PROCEDURE: Patient was placed in the supine position. The patient was sedated per anesthesia that time. The chest was prepped and draped in the usual sterile fashion. The skin was localized with Marcaine solution. The previous incision was re-incised using a scalpel. The port was easily excised using accommodation of blunt dissection sharp dissection and electrocautery. The subcutaneous tissues were reapproximated using 3-0 Vicryl sutures. The skin was reapproximated using 4-0 Monocryl sutures. Skin glue was then applied. DISPOSITION: Stable to recovery room
[2022-03-07 08:41] VITALS: BP 97/55; PULSE 65; RESP 20
== END 2022-03-07 08:45 | disposition home or self-care (01) ==
LOC: OR 06:14
PROVIDERS: ATTEND Surgery
DX: Z45.2 Encounter for adjustment and management of vascular access device (principal); C50.919 Malignant neoplasm of unspecified site of unspecified female breast; Z85.3 Personal history of malignant neoplasm of breast
CPT/HCPCS: 36590; J2250; J1100; J0690; J2405; J3010; J2704; J1644

== ENCOUNTER → 2022-04-28 | Outpatient (CLI) | payer BC ==
--- NOTE | 2022-04-28 14:16 | P.PN ---
Subjective Progress Note Date: 04/28/22 Principal diagnosis: right breast invasive ductal cancer; stage IB Shawnee is a 56-year-old white female status post [place] [id number]. Final pathology revealed a 1 cm focus of grade 3 invasive ductal carcinoma. There was also grade 3 DCIS. The tumor was tripple (-). Invasive cancer was present less than 1 mm from the anterior lateral and posterior margins. DCIS was present less than 2 mm from the posterior margin. 5 lymph nodes were removed and one was positive for ITC S. She subsequently underwent 4 cycles of adjuvant TC. She underwent genetic testing which was negative. She completed radiation therapy the week after gi. She tolerated this without difficulty. Note from radiation oncology [id number] reviewed Note from [id number] medical oncology reviewed Caffeine: 2 cups/day nicotine: none chocolate: occasional BCP: 5 years stopped in her 30's hormones: none Family history: maternal grandmother: lung cancer paternal grandmother: ? type paternal uncle: liver cancer drinker Hormonal History: menarche: 14 , breast fed: no, age at first : 26 menopause: ablation at 46, periods stopped hormones: none Surgical history: Uterine ablation Medical history: bursitis of both hips depression Social History: nicotine: none alcohol: none drugs: none - Constitutional Constitutional: Denies chills, Denies fever - EENT Eyes: denies blurred vision, denies pain Ears: deny: decreased hearing, tinnitus Ears, nose, mouth and throat: Denies headache, Denies sore throat - Breasts Breasts: bilateral: as per HPI - Cardiovascular Cardiovascular: Denies chest pain, Denies shortness of breath - Respiratory Respiratory: Denies cough - Gastrointestinal Gastrointestinal: Denies abdominal pain, Denies diarrhea, Denies nausea, Denies vomiting - Genitourinary (Female) Genitourinary: Denies dysuria, Denies hematuria - Menstruation Menstruation: Reports postmenopausal - Musculoskeletal Musculoskeletal: Reports as per HPI - Integumentary Integumentary: Denies pruritus, Denies rash - Neurological Neurological: Denies numbness, Denies weakness - Psychiatric Psychiatric: Denies anxiety, Denies depression - Endocrine Endocrine: Denies fatigue, Denies weight change - Hematologic/Lymphatic Comment: none - Allergic/Immunologic Allergic/Immunologic: Reports seasonal allergies Objective - Constitutional General appearance: Present: cooperative - EENT Eyes: Present: EOMI ENT: Present: hearing grossly normal - Neck Neck: Present: normal ROM - Respiratory Respiratory: bilateral: CTA - Cardiovascular Rhythm: regular Heart sounds: normal: S1, S2 - Gastrointestinal General gastrointestinal: Present: soft - Integumentary Integumentary: Present: normal turgor - Musculoskeletal Musculoskeletal: Present: gait normal - Psychiatric Psychiatric: Present: A&O x's 3, appropriate affect, intact judgment & insight - Additional findings Additional findings: Breast Exam: BRA: 34C inspection: right breast post op post radiation changes areolar prominent, left breast grade 2/3 ptosis The patient: Right breast: Multi-positional exam post radiation and postoperative changes, no discrete dominant masses or nodules of concern Right axilla: No adenopathy of concern Left breast: Multi-positional exam fibrocystic changes no dominant masses or nodules of concern Left axilla: No adenopathy of concern Assessment and Plan Assessment: Impression: Stage IB invasive ductal carcinoma right breast treated with lumpectomy sentinel node biopsy, chemotherapy, radiation therapy T1c and 0 M0 G3 triple negative No evidence of any recurrence at this time Plan: Patient is due for a left breast mammogram Repeat right breast mammogram 6 months after radiation therapy completed Patient will follow up after left breast mammogram Continue to follow with medical oncology Continue to follow with radiation oncology Cc: Dr. Andrea
[2022-04-28 14:21] VITALS: BP 109/75; PULSE 76; RESP 17; TEMP 97.8
== END ==
LOC: WWCWWP 13:52
PROVIDERS: ATTEND Surgery
DX: Z90.11 Acquired absence of right breast and nipple (principal); Z92.3 Personal history of irradiation; Z92.21 Personal history of antineoplastic chemotherapy; Z80.1 Family history of malignant neoplasm of trachea, bronchus and lung; Z80.0 Family history of malignant neoplasm of digestive organs; Z88.3 Allergy status to other anti-infective agents

== ENCOUNTER → 2022-05-09 | Outpatient (CLI) | payer BC ==
--- NOTE | 2022-05-09 13:14 | MM ---
Reason for Exam: Follow-up at short interval from prior study. Last screening mammogram was performed 12 month(s) ago. Patient History: Menarche at age 15. First Full-Term at age 26. Breast cancer, right, age 56. Previous chest radiation therapy at age 56. Previous chemotherapy at age 56. 11/09/2021, Lumpectomy on the Right side. 11/09/2021, Malignant US breast localization RT on the right side. 11/09/2021, Malignant US breast surgical speciment RT on the right side. 09/09/2021, Malignant Core Biopsy on the right side. Prior Study Comparison: 04/29/2021 Screening Mammogram, [facility]. 09/09/2021 Right Diagnostic Mammogram, [facility]. 11/09/2021 Right MG diagnostic mammo RT wo CAD, [facility]. Tissue Density: Left: The breast tissue is heterogeneously dense. This may lower the sensitivity of mammography. Findings: Analyzed By CAD. No suspicious masses, calcifications or distortions. Overall Assessment: Negative, BI-RAD 1 Management: Screening Mammogram of both breasts in 1 year. A clinical breast exam by your physician is recommended on an annual basis and results should be correlated with mammographic findings. This exam should not preclude additional follow-up of suspicious palpable abnormalities. Results were given to the patient verbally at the time of exam. Electronically signed and approved by: Doc Harper DO
== END | disposition home or self-care (01) ==
LOC: RADMAMWWP 12:43
PROVIDERS: ATTEND Surgery
DX: R92.2 Inconclusive mammogram (principal); Z85.3 Personal history of malignant neoplasm of breast; Z98.890 Other specified postprocedural states
CPT/HCPCS: 77061; 77065

== ENCOUNTER → 2022-05-23 | Outpatient (CLI) | payer BC ==
--- NOTE | 2022-05-23 14:45 | MR ---
EXAMINATION TYPE: MR MRCP DATE OF EXAM: 05/23/2022 8:07 AM CLINICAL INDICATION:Female, 56 years old with history of C50.411 BREAST CANCER; COMPARISON: None TECHNIQUE: Multi planar, T2-weighted imaging with and without fat saturation and chemical shift imag ing was performed of the abdomen. Then, heavily T2 weighted imaging (half-Fourier acquisition single- shot turbo spin-echo) was utilized in order to study the biliary system. Maximum intensity projectio n images were reconstructed from the original data of the biliary tree. 3D images were created on a [employer] work station. No Gadolinium given. FINDINGS: MRCP: The intrahepatic ducts have a normal appearance. The common bile duct at the level of the adames creatic head measures 4 mm in size. The common hepatic duct measures 4 mm in size. The pancreatic du ct is normal. The gallbladder appears unremarkable. Abdomen: Liver: No evidence of steatosis Gallbladder and Bile ducts: Unremarkable. Pancreas: Pancreatic parenchyma otherwise uniform without suspicious solid or cystic lesion. No ducta l dilatation. Spleen: Unremarkable. Adrenal glands: Unremarkable. Kidneys: Left upper kidney high T2 signal renal cyst. Stomach and Bowel: Unremarkable as visualized. Peritoneum: No evidence of pneumoperitoneum, free fluid, or adenopathy. Vasculature: Unremarkable. No aortic aneurysm. Abdominal wall: Unremarkable. Musculoskeletal: The osseous structures appear intact. Thorax: Asymmetrically increased right breast tissue likely postsurgical given surgical excision on . IMPRESSION: 1. No evidence to suggest ductal stricture, choledocholithiasis, or biliary ductal dilatation. 2. No evidence of pancreatic mass.
== END | disposition home or self-care (01) ==
LOC: RADMRIMAIN 07:24
PROVIDERS: ATTEND Internal Medicine Hematology & Oncology
DX: C50.411 Malignant neoplasm of upper-outer quadrant of right female breast (principal)
CPT/HCPCS: 74181

== ENCOUNTER → 2022-08-25 | Outpatient (CLI) | payer BC ==
--- NOTE | 2022-08-25 13:10 | MM ---
Reason for Exam: Follow-up at short interval from prior study. Last mammogram was performed 1 year(s) and 4 month(s) ago. Patient History: Menarche at age 15. First Full-Term at age 26. Breast cancer, right, age 56. Previous chest radiation therapy at age 56. Previous chemotherapy at age 56. 11/09/2021, Lumpectomy on the Right side. 11/09/2021, Malignant US breast localization RT on the right side. 11/09/2021, Malignant US breast surgical speciment RT on the right side. 09/09/2021, Malignant Core Biopsy on the right side. Prior Study Comparison: 09/09/2021 Right Diagnostic Mammogram, [facility]. 11/09/2021 Right MG diagnostic mammo RT wo CAD, [facility]. 05/09/2022 Left MG 3D diag mammo w/cad LT, [facility]. Tissue Density: Right: The breast tissue is extremely dense which could obscure a lesion on mammography. Findings: Analyzed By CAD. Pattern appears stable. Skin thickening is present through the right breast. Surgical clips are within the outer aspect right breast are previous lumpectomy site. No suspicious groups of microcalcifications, spiculated or lobular masses, architectural distortion or other secondary signs of malignancy are mammographically apparent. Overall Assessment: Probably benign, BI-RAD 3 Management: Diagnostic Mammogram of both breasts in 6 months. A negative mammogram report should not preclude additional follow up of suspicious palpable abnormalities. Patient should continue monthly self breast exam. A clinical breast exam by your physician is recommended on an annual basis and results should be correlated with mammographic findings. Electronically signed and approved by: Vladimir Maldonado D.O. Radiologis
--- NOTE | 2022-08-25 14:39 | P.PN ---
Subjective Progress Note Date: 08/25/22 right breast invasive ductal cancer; stage IB Shawnee is a 56-year-old white female status post right breast lumpectomy and sentinel node sampling on . Final pathology revealed a 1 cm focus of grade 3 invasive ductal carcinoma. There was also grade 3 DCIS. The tumor was tripple (-). Invasive cancer was present less than 1 mm from the anterior lateral and posterior margins. DCIS was present less than 2 mm from the posterior margin. 5 lymph nodes were removed and one was positive for ITC S. She subsequently underwent 4 cycles of adjuvant TC. She underwent genetic testing which was negative. She completed radiation therapy the week after 2021. She is not complaining of any new lumps masses or nodules of concern in either breast. She tolerated this without difficulty. She had a left breast mammogram on 05-09-22 which was BIRAD 1 right breast mammogram on 08-25-22 BIRAD 3 Note from radiation oncology 05-04-22 reviewed Note from 05-06-22 medical oncology reviewed Caffeine: 2 cups/day nicotine: none chocolate: occasional BCP: 5 years stopped in her 30's hormones: none Family history: maternal grandmother: lung cancer paternal grandmother: ? type paternal uncle: liver cancer drinker Hormonal History: menarche: 14 , breast fed: no, age at first : 26 menopause: ablation at 46, periods stopped hormones: none Surgical history: Uterine ablation right breast lumpectomy and SNB on 11-09-21 Medical history: bursitis of both hips depression Social History: nicotine: none alcohol: none drugs: none - Constitutional Constitutional: Denies chills, Denies fever - EENT Eyes: denies blurred vision, denies pain Ears: deny: decreased hearing, tinnitus Ears, nose, mouth and throat: Denies headache, Denies sore throat - Breasts Breasts: bilateral: as per HPI - Cardiovascular Cardiovascular: Denies chest pain, Denies shortness of breath - Respiratory Respiratory: Denies cough - Gastrointestinal Gastrointestinal: Denies abdominal pain, Denies diarrhea, Denies nausea, Denies vomiting - Genitourinary (Female) Genitourinary: Denies dysuria, Denies hematuria - Menstruation Menstruation: Reports postmenopausal - Musculoskeletal Musculoskeletal: Reports as per HPI - Integumentary Integumentary: Denies pruritus, Denies rash - Neurological Neurological: Denies numbness, Denies weakness - Psychiatric Psychiatric: Denies anxiety, Denies depression - Endocrine Endocrine: Denies fatigue, Denies weight change - Hematologic/Lymphatic Comment: none - Allergic/Immunologic Allergic/Immunologic: Reports seasonal allergies Objective - Constitutional General appearance: Present: cooperative - EENT Eyes: Present: EOMI ENT: Present: hearing grossly normal - Neck Neck: Present: normal ROM - Respiratory Respiratory: bilateral: CTA - Cardiovascular Rhythm: regular Heart sounds: normal: S1, S2 - Gastrointestinal General gastrointestinal: Present: soft - Integumentary Integumentary: Present: normal turgor - Musculoskeletal Musculoskeletal: Present: gait normal - Psychiatric Psychiatric: Present: A&O x's 3, appropriate affect, intact judgment & insight - Additional findings Additional findings: Breast Exam: BRA: 34C inspection: right breast post op post radiation changes areola prominent, left breast grade 2/3 ptosis palpation: Right breast: Multi-positional exam post radiation and postoperative changes, no discrete dominant masses or nodules of concern Right axilla: No adenopathy of concern Left breast: Multi-positional exam fibrocystic changes no dominant masses or nodules of concern Left axilla: No adenopathy of concern Assessment and Plan Assessment: Impression: Stage IB invasive ductal carcinoma right breast treated with lumpectomy sentinel node biopsy, chemotherapy, radiation therapy T1c and 0 M0 G3 triple negative No evidence of any recurrence at this time Plan: Patient for bilateral mammogram in 6 months follow up in 6 months Continue to follow with medical oncology Continue to follow with radiation oncology Cc: Dr. Andrea
== END | disposition home or self-care (01) ==
LOC: RADMAMWWP 12:43
PROVIDERS: ATTEND Surgery
DX: Z85.3 Personal history of malignant neoplasm of breast (principal); Z80.0 Family history of malignant neoplasm of digestive organs; Z92.3 Personal history of irradiation; Z80.1 Family history of malignant neoplasm of trachea, bronchus and lung
CPT/HCPCS: 77061; 77065

== ENCOUNTER → 2022-08-25 | Outpatient (CLI) | payer BC ==
[2022-08-25 14:24] VITALS: BP 131/78; PULSE 67; RESP 16; TEMP 98.2
== END ==
LOC: WWCWWP 12:45
PROVIDERS: ATTEND Surgery
DX: Z53.9 Procedure and treatment not carried out, unspecified reason (principal)

== ENCOUNTER → 2022-09-09 | Outpatient (CLI) | payer BC ==
--- NOTE | 2022-09-09 09:08 | BD ---
EXAMINATION TYPE: Axial Bone Density DATE OF EXAM: 09/09/2022 CLINICAL HISTORY: 57 years old Female. ICD-10 CODE: M85.88 OSTEOPENIA Height: 61.6 Weight: 142 FRAX RISK QUESTIONS: nothing to note here RISK FACTORS HISTORY OF: Postmenopausal woman: ablation at age 43, geena probably about 50ish Hyperparathyroidism: no Adrenal Insufficiency: no MEDICATIONS: Additional Medications: hx of chemo and radiation, Additional History: breast cancer, lumpectomy right breast, October 2021, radiation therapy 2021, chemot herapy 2021 EXAM MEASUREMENTS: Bone mineral densitometry was performed using the [employer] System. Bone mineral density as measured about the Lumbar spine is: ----- L1-L4(G/cm2): 1.011 T Score Values are as follows: ----- L1: -1.5 ----- L2: -1.6 ----- L3: -1.3 ----- L4: -1.3 ----- L1-L4: -1.4 Z Score Values are as follows: ----- L1: -0.6 ----- L2: -0.7 ----- L3: -0.4 ----- L4: -0.4 ----- L1-L4: -0.5 Bone mineral density is her first dexa study with [facility]. Bone mineral density about the R hip (g/cm2): 0.807 Bone mineral density about the L hip (g/cm2): 0.773 T Score values are as follows: -----R Neck: -2.4 -----L Neck: -2.9 -----R Total: -1.6 -----L Total: -1.9 Z Score values are as follows: -----R Neck: -1.3 -----L Neck: -1.8 -----R Total: -0.9 -----L Total: -1.1 Bone mineral density is her first dexa study with [facility]. FRAX%s: The graph provided illustrates a 11.6% chance for a major osteoporotic fx and a 2.9% chance f or the hips probability for fx in 10 years time. IMPRESSION: Osteoporosis (T Score less than -2.5). There is increased fracture risk and therapy is usually indicated based on age. Re-Screen 1-2 years. NOTE: T-SCORE=SD OF THE YOUNG ADULT MEAN.
== END | disposition home or self-care (01) ==
LOC: RADBDWWP 08:08
PROVIDERS: ATTEND Obstetrics & Gynecology
DX: M81.0 Age-related osteoporosis without current pathological fracture (principal); M85.89 Other specified disorders of bone density and structure, multiple sites; Z85.3 Personal history of malignant neoplasm of breast
CPT/HCPCS: 77080

== ENCOUNTER → 2023-02-28 | Outpatient (CLI) | payer BC ==
--- NOTE | 2023-03-07 13:50 | MM ---
Reason for Exam: Follow-up at short interval from prior study. Last mammogram was performed 1 year(s) and 10 month(s) ago. Patient History: Menarche at age 15. First Full-Term at age 26. Breast cancer, right, age 56. Previous chest radiation therapy at age 56. Previous chemotherapy at age 56. 11/09/2021, Lumpectomy on the Right side. 11/09/2021, Malignant US breast localization RT on the right side. 11/09/2021, Malignant US breast surgical speciment RT on the right side. 09/09/2021, Malignant Core Biopsy on the right side. Prior Study Comparison: 10/24/2003 Bilateral Screening Mammogram, [facility]. 04/29/2021 Screening Mammogram, [facility]. 08/27/2021 Right Diagnostic Ultrasound, [facility]. 09/09/2021 Right Diagnostic Mammogram, [facility]. 09/22/2021 Bilateral Diagnostic Breast MRI, [facility]. 11/09/2021 Right MG diagnostic mammo RT wo CAD, [facility]. 05/09/2022 Left MG 3D diag mammo w/cad LT, [facility]. 08/25/2022 Right MG 3D diag mammo w/cad RT, [facility]. Tissue Density: The breast tissue is heterogeneously dense. This may lower the sensitivity of mammography. Findings: Analyzed By CAD. Surgical clips are within the right breast. The parenchymal pattern appears stable. Skin thickening is on the right. No significant interval changes are evident. No suspicious groups of microcalcifications, spiculated or lobular masses, architectural distortion or other secondary signs of malignancy are mammographically apparent. Overall Assessment: Benign, BI-RAD 2 Management: Diagnostic Mammogram of both breasts in 1 year. A negative mammogram report should not preclude additional follow up of suspicious palpable abnormalities. Patient should continue monthly self breast exam. A clinical breast exam by your physician is recommended on an annual basis and results should be correlated with mammographic findings. Electronically signed and approved by: Vladimir Maldonado D.O. Radiologis
== END | disposition home or self-care (01) ==
LOC: RADMAMWWP 13:02
PROVIDERS: ATTEND Surgery
DX: R92.333 Mammographic heterogeneous density, bilateral breasts (principal); Z85.3 Personal history of malignant neoplasm of breast
CPT/HCPCS: 77062; 77066

== ENCOUNTER → 2023-03-02 | Outpatient (CLI) | payer BC ==
[2023-03-02 15:13] VITALS: BP 107/70; PULSE 68; RESP 18; TEMP 98.3
--- NOTE | 2023-03-02 15:37 | P.PN ---
Subjective Progress Note Date: 03/02/23 right breast invasive ductal cancer; stage IB; 2021 Shawnee is a 56-year-old white female status post right breast lumpectomy and sentinel node sampling on . Final pathology revealed a 1 cm focus of grade 3 invasive ductal carcinoma. There was also grade 3 DCIS. The tumor was tripple (-). Invasive cancer was present less than 1 mm from the anterior lateral and posterior margins. DCIS was present less than 2 mm from the posterior margin. 5 lymph nodes were removed and one was positive for ITC S. She subsequently underwent 4 cycles of adjuvant TC. She underwent genetic testing which was negative. She completed radiation therapy the week after 2021. She is not complaining of any new lumps masses or nodules of concern in either breast. She tolerated this without difficulty. She had a left breast mammogram on 05-09-22 which was BIRAD 1 right breast mammogram on 08-25-22 BIRAD 3 repeat right breast mammogram on 08-25-22 BIRAD 3 repeat bilateral in 6 months; he had a bilateral mammogram performed on [id number] the results are pending Note from radiation oncology 11-02-22 reviewed Caffeine: 2 cups/day nicotine: none chocolate: occasional BCP: 5 years stopped in her 30's hormones: none Family history: maternal grandmother: lung cancer paternal grandmother: ? type paternal uncle: liver cancer drinker Hormonal History: menarche: 14 , breast fed: no, age at first : 26 menopause: ablation at 46, periods stopped hormones: none Surgical history: Uterine ablation right breast lumpectomy and SNB on 11-09-21 Medical history: bursitis of both hips depression Social History: nicotine: none alcohol: none drugs: none - Constitutional Constitutional: Denies chills, Denies fever - EENT Eyes: denies blurred vision, denies pain Ears: deny: decreased hearing, tinnitus Ears, nose, mouth and throat: Denies headache, Denies sore throat - Breasts Breasts: bilateral: as per HPI - Cardiovascular Cardiovascular: Denies chest pain, Denies shortness of breath - Respiratory Respiratory: Denies cough - Gastrointestinal Gastrointestinal: Denies abdominal pain, Denies diarrhea, Denies nausea, Denies vomiting - Genitourinary (Female) Genitourinary: Denies dysuria, Denies hematuria - Menstruation Menstruation: Reports postmenopausal - Musculoskeletal Musculoskeletal: Reports as per HPI - Integumentary Integumentary: Denies pruritus, Denies rash - Neurological Neurological: Denies numbness, Denies weakness - Psychiatric Psychiatric: Denies anxiety, Denies depression - Endocrine Endocrine: Denies fatigue, Denies weight change - Hematologic/Lymphatic Comment: none - Allergic/Immunologic Allergic/Immunologic: Reports seasonal allergies Objective - Vital Signs Vital signs: Vital Signs Temp 98.3 F 03/02/23 15:09 Pulse 68 03/02/23 15:09 Resp 18 03/02/23 15:09 BP 107/70 03/02/23 15:09 Pulse Ox 100 03/02/23 15:09 FiO2 Intake & Output 03/01/23 03/02/23 03/02/23 18:59 06:59 18:59 Weight 65.771 kg - Constitutional General appearance: Present: cooperative - EENT Eyes: Present: EOMI ENT: Present: hearing grossly normal - Neck Neck: Present: normal ROM - Respiratory Respiratory: bilateral: CTA - Cardiovascular Rhythm: regular Heart sounds: normal: S1, S2 - Gastrointestinal General gastrointestinal: Present: soft - Integumentary Integumentary: Present: normal turgor - Musculoskeletal Musculoskeletal: Present: gait normal - Psychiatric Psychiatric: Present: A&O x's 3, appropriate affect, intact judgment & insight - Additional findings Additional findings: Breast Exam: BRA: 34C inspection: right breast post op post radiation changes areola prominent, left breast grade 2/3 ptosis palpation: Right breast: Multi-positional exam post radiation and postoperative changes, no discrete dominant masses or nodules of concern Right axilla: No adenopathy of concern Left breast: Multi-positional exam fibrocystic changes no dominant masses or nodules of concern Left axilla: No adenopathy of concern Assessment and Plan Assessment: Impression: Stage IB invasive ductal carcinoma right breast treated with lumpectomy sentinel node biopsy, chemotherapy, radiation therapy T1c N0 M0 G3 triple negative No evidence of any recurrence at this time Plan: follow up in 6 months Patient will call next week for results of mammogram from [id number] Continue to follow with medical oncology Continue to follow with radiation oncology Cc: Dr. Andrea
== END ==
LOC: WWCWWP 14:38
PROVIDERS: ATTEND Surgery
DX: C50.911 Malignant neoplasm of unspecified site of right female breast (principal); F32.A Depression, unspecified; Z88.8 Allergy status to other drugs, medicaments and biological substances; Z17.1 Estrogen receptor negative status [ER-]; Z51.11 Encounter for antineoplastic chemotherapy; Z92.3 Personal history of irradiation

== ENCOUNTER → 2023-07-24 | Outpatient (CLI) | payer OTHER ==
--- NOTE | 2023-07-24 15:13 | XR ---
Supine and upright abdomen. DATE: 07/24/2023. COMPARISON: None available. CLINICAL HISTORY: Left flank pain. IMPRESSION: The bowel gas pattern is nonobstructive. There is a moderate to large amount of stool seen within the transverse colon and proximal descending colon as well as portions of the right colon. There is no abnormal mass effect or suspicious calcifications otherwise seen radiographically.
--- NOTE | 2023-07-24 15:21 | XR ---
Complete spine AP and lateral. DATE: 07/24/2023. COMPARISON: None available. CLINICAL HISTORY: Left flank pain. FINDINGS: The vertebral bodies are well aligned without evidence of fracture, subluxation or dislocation. The vertebral body heights are maintained. There is mild degenerative disc space narrowing and C5-6 and L4-5 and L5-S1. The vertebral body heigh ts and disc spaces otherwise appear to be maintained. There is no prevertebral soft tissue swelling. IMPRESSION: Mild degenerative changes with no acute osseous abnormalities.
== END | disposition home or self-care (01) ==
LOC: RADXRMAIN 13:40
PROVIDERS: ATTEND Nurse Practitioner Family
DX: M47.817 Spondylosis without myelopathy or radiculopathy, lumbosacral region (principal); K31.89 Other diseases of stomach and duodenum; M81.0 Age-related osteoporosis without current pathological fracture
CPT/HCPCS: 72082; 74019

== ENCOUNTER → 2023-08-25 | Outpatient (CLI) | payer OTHER ==
--- NOTE | 2023-08-25 18:57 | CT ---
EXAMINATION TYPE: CT abdomen pelvis w con CT DLP: 519..20 mGycm, Automated exposure control for dose reduction was used. DATE OF EXAM: 08/25/2023 5:15 PM COMPARISON: None CLINICAL INDICATION:Female, 58 years old with history of K57.92 DVTRCLI OF INTEST, PART UNSP, W/O PER F OR A; diverticulitis TECHNIQUE: Axial CT abdomen pelvis w con;Sagittal and coronal reformats were created on a separate w orkstation. Contrast used:100ml mL of Isovue 300 with IV Contrast, (none if empty) Oral contrast used: with Oral Contrast (none if empty) FINDINGS: LOWER CHEST: Mild skin thickening of the right breast. ABDOMEN LIVER: Unremarkable GALLBLADDER AND BILE DUCTS: Unremarkable. PANCREAS: Unremarkable. SPLEEN: Unremarkable. ADRENAL GLANDS: Unremarkable. KIDNEYS AND URETERS: No evidence of hydronephrosis or renal calculus. The ureters are unremarkable. Simple appearing left renal cyst. PELVIS BLADDER: Distended urinary bladder. REPRODUCTIVE: Unremarkable. ABDOMEN & PELVIS STOMACH AND BOWEL: Moderate amount stool throughout the colon. No evidence of bowel obstruction. PERITONEUM/RETROPERITONEUM: No evidence of pneumoperitoneum or free fluid. VASCULATURE: No evidence of aortic aneurysm. MUSCULOSKELETAL: No acute osseous abnormalities LYMPH NODES: No gross evidence for lymphadenopathy. SOFT TISSUE/ABDOMINAL WALL: Unremarkable IMPRESSION: 1. Moderate amount stool throughout the colon. No evidence for acute abdominal process. No evidence for diverticulitis. 2. Distended urinary bladder, correlate clinically. 3. Mild skin thickening of the right breast, correlate with mammography.
== END | disposition home or self-care (01) ==
LOC: RADCTMAIN 14:01
PROVIDERS: ATTEND Family Medicine
DX: K57.92 Diverticulitis of intestine, part unspecified, without perforation or abscess without bleeding (principal); R23.4 Changes in skin texture
CPT/HCPCS: 74177; Q9967

== ENCOUNTER → 2024-03-01 | Outpatient (CLI) | payer OTHER ==
--- NOTE | 2024-03-05 18:51 | MM ---
Reason for Exam: Screening (asymptomatic). Last screening mammogram was performed 12 month(s) ago. Patient History: Menarche at age 15. First Full-Term at age 26. Breast cancer, right, age 56. Previous chest radiation therapy at age 56. Previous chemotherapy at age 56. 11/09/2021, Lumpectomy on the Right side. 11/09/2021, Malignant US breast localization RT on the right side. 11/09/2021, Malignant US breast surgical speciment RT on the right side. 09/09/2021, Malignant Core Biopsy on the right side. 2021, Radiation Therapy on the right side. 2021, Chemotherapy. Mother had breast cancer, age 73. Prior Study Comparison: 05/09/2022 Left MG 3D diag mammo w/cad LT, [facility]. 08/25/2022 Right MG 3D diag mammo w/cad RT, [facility]. 02/28/2023 Bilateral MG 3D diag mammo w/cad [place], [facility]. Tissue Density: The breasts are heterogeneously dense, which may obscure small masses. Findings: Analyzed By CAD. Chronic postsurgical and posttreatment change right breast. There is no suspicious group of microcalcifications or new suspicious mass in either breast. Overall Assessment: Benign, BI-RAD 2 Management: Screening Mammogram of both breasts in 1 year. . Patient should continue monthly self-breast exams. A clinical breast exam by your physician is recommended on an annual basis. This exam should not preclude additional follow-up of suspicious palpable abnormalities. [facility], , 03/05/2024 6:49 PM. Electronically signed and approved by: Slade Huffman M.D. Radiologist
== END | disposition home or self-care (01) ==
LOC: RADMAMWWP 14:43
PROVIDERS: ATTEND Internal Medicine Hematology & Oncology
CPT/HCPCS: 77063; 77067